=== PATIENT | male | born 1990 | race Caucasian/White ===

== ENCOUNTER → 2019-01-02 | Outpatient (CLI) | payer OTHER ==
[2019-01-02 14:03] LABS: Hepatitis B Surface Antibody Positive
[2019-01-02 16:13] LABS: Hepatitis B Surface Antigen Negative (Negative)
== END | disposition home or self-care (01) ==
LOC: LAB 11:33
PROVIDERS: ATTEND Pediatrics
DX: Z11.59 Encounter for screening for other viral diseases (principal)
CPT/HCPCS: 36415; 86703; 86706; 86803; 87340

== ENCOUNTER → 2019-06-02 | Outpatient (CLI) | payer OTHER ==
[2019-06-02 14:42] LABS: Hepatitis B Surface Antibody Positive
[2019-06-02 15:49] LABS: Hepatitis B Surface Antigen Negative (Negative)
== END | disposition home or self-care (01) ==
LOC: LAB 13:29
PROVIDERS: ATTEND Nurse Practitioner
DX: Z77.21 Contact with and (suspected) exposure to potentially hazardous body fluids (principal)
CPT/HCPCS: 36415; 86703; 86706; 86803; 87340